=== PATIENT | female | born 1975 | race Caucasian/White ===

== ENCOUNTER 2019-06-26 13:45 | Emergency (ER) | payer OTHER ==
[2019-06-26] MEDS ORDERED: ACETAMINOPHEN 1000 MG/100 ML VIAL (NON FORMULARY) IVPB ONE (14:01)
[2019-06-26] MEDS ORDERED: ACETAMINOPHEN INJECTION 100 ML IVPB ONE (14:02)
[2019-06-26] MEDS ORDERED: ACETAMINOPHEN 325 MG TABLET (FP) PO ONE (14:20)
[2019-06-26] MEDS ORDERED: ACETAMINOPHEN 325 MG TABLET (FP) ONE (14:38)
[2019-06-26 14:46] VITALS: BMI 28.8
--- NOTE | 2019-06-26 15:04 | PDOC ---
History of Present Illness <Shama Harris Kimberlylex - Last Filed: 06/26/19 15:19> - History of Present Illness Initial Comments: Nolvia Khan is a 43yo woman with a PMH of endometriosis, PTSD, anxiety who presents with a head injury following a fall while ice skating. She reports that she was trying to avoid hitting a child, and she fell backwards and struck her head. Per EMS report, Ms Khan did lose consciousness for about 3 minutes. She was oriented x2 when she woke, now improved to fully oriented. She reports significant posterior head pain with slight nausea. She denies vomiting, focal weakness, difficulty speaking, or any current confusion. <Lorri Olmedo - Last Filed: 06/26/19 19:00> - General Chief Complaint: Injury Stated Complaint: FALL Time Seen by Provider: 06/26/19 14:05 Past History <HarrisRukhsanaShamaarnol Angeles - Last Filed: 06/26/19 15:19> <Lorri Olmedo - Last Filed: 06/26/19 19:00> - Past Medical History Allergies/Adverse Reactions: Allergies Allergy/AdvReac Type Severity Reaction Status Date / Time No Known Drug Allergies Allergy Verified 06/26/19 14:22 Home Medications: Ambulatory Orders Buspirone HCl [Buspar -] 5 mg PO DAILY 06/26/19 Review of Systems - Review of Systems Comments:: General: No fevers, no chills, no weight or appetite change, no malaise HEENT: No changes in vision, no changes in hearing, no congestion, no sore throat, +Rt ear pain, +MARTÍNEZ CV: No chest pain, no palpitations, no LE edema Pulm: No SOB, no cough, no wheezing GI: +nausea, no change in bowel habits, no melena : No frequency, no urgency, no dysuria Musc: See HPI Skin: No rash, no lesions, no erythema Endo: No excessive thirst, no heat/cold intolerance Heme: No unusual bruising or bleeding, no swollen glands Neuro: No syncope, no numbness/tingling, no focal weakness Vasc: No claudication Psych: No recent change in mood, no SI or HI <Lorri Olmedo - Last Filed: 06/26/19 19:00> *Physical Exam - Vital Signs Last Vital Signs Temp Pulse Resp BP Pulse Ox 97.1 F L 68 18 133/82 100 06/26/19 14:26 06/26/19 14:26 06/26/19 14:26 06/26/19 14:26 06/26/19 14:26 <Shama Harris - Last Filed: 06/26/19 15:19> - Physical Exam General: Comfortable, no acute distress HEENT: Contusion w/ swelling over posterior head. PERRL, EOMI, MMM, voice normal , normal neck ROM, no posterior neck tenderness Cards: RRR, no murmur appreciated Pulm: Comfortable on room air, clear to auscultation bilaterally Abd: Soft, nontender, nondistended Ext: Atraumatic. No LE edema. ROM intact. WWP Skin: Normal color, no rashes or lesions Neuro: A&Ox3, CN grossly intact, normal speech, motor/sensory grossly intact and symmetric. No focal deficits Psych: Mood appropriate to situation <Lorri Olmedo - Last Filed: 06/26/19 19:00> ED Treatment Course - Medications Given in the ED: ED Medications Discontinued Medications Generic Name Dose Route Start Last Admin Trade Name Freq PRN Reason Stop Dose Admin Acetaminophen 1,000 mg 06/26/19 14:01 06/26/19 14:35 Ofirmev Injection - IVPB 06/26/19 14:02 Not Given ONCE ONE Acetaminophen 975 mg 06/26/19 14:20 06/26/19 14:42 Tylenol - PO 06/26/19 14:21 975 mg ONCE ONE Administration <Shama Harris - Last Filed: 06/26/19 15:19> - RADIOLOGY Radiology Studies Ordered: Category Date Time Status HEAD CT WITHOUT CONTRAST [CT] Stat CT Scan 06/26/19 14:01 Ordered <Lorri Olmedo - Last Filed: 06/26/19 19:00> Medical Decision Making - Medical Decision Making 06/26/19 14:29 Nolvia Khan is a 43yo woman with a PMH of endometriosis, PTSD, anxiety who presents with a head injury following a fall while ice skating. She had positive LOC, was initially only oriented x2, and reports nausea but no vomiting. - Awake, alert, neurologically intact. - Swelling w/o abrasion or bleeding over large area of posterior head. TTP. - Given LOC, visible trauma, CT head ordered - No posterior neck tenderness, ROM intact. No need for CT c-spine 06/26/19 15:21 - CT head negative - Pt feeling improved after acetaminophen - Will d/c home. Advised regarding home care, return precautions, and follow up at length. Pt states understanding and agreement. Will f/u with her PMD Discussed with Dr Kimberly Olmedo PGY2 <Lorri Olmedo - Last Filed: 06/26/19 19:00> Discharge - Discharge Information Problems reviewed: Yes <Shama Harris - Last Filed: 06/26/19 15:19> - Discharge Information Problems reviewed: Yes - Admission No <Lorri Olmedo - Last Filed: 06/26/19 19:00> - Discharge Information Clinical Impression/Diagnosis: Scalp hematoma Qualifiers: Encounter type: initial encounter Qualified Code(s): S00.03XA - Contusion of scalp, initial encounter Closed head injury Qualifiers: Encounter type: initial encounter Qualified Code(s): S09.90XA - Unspecified injury of head, initial encounter Condition: Stable Disposition: HOME - Follow up/Referral Referrals: Anne Chua [Primary Care Provider] - - Patient Discharge Instructions Patient Printed Discharge Instructions: DI for Closed Head Injury Additional Instructions: Discharge Instructions: You were seen in the emergency department after a head injury. Your CT scan did not show any serious injury, but you will have swelling and bruising to the back of your head. Home Care and Follow Up: - You may use over the counter medications as needed for pain at home. 650- 1000mg acetaminophen (Tylenol) or 600mg ibuprofen (Motrin or Advil) can be used every 6-8 hours. If needed for continued pain, these medications may be alternated every 3-4 hours. For example, if you take ibuprofen at 9am, you may take acetaminophen at noon, ibuprofen at 3pm, etc. - It is strongly recommended that you take ibuprofen with food to help prevent stomach irritation. - Try using an ice pack for 20 minutes every hour to help control swelling and pain. - You will probably have tenderness and swelling for several days. If you have any other symptoms, see your primary doctor or return to the ED. - Seek immediate medical care if you have significant worsening of your symptoms , you become sleepy or confused, you have any neurological symptoms (eg. one- sided weakness, numbness, difficulty walking, changes in speech, facial droop), if you have multiple episodes of vomiting per hour for at least 2 hours, or if you have any other medical emergency. - Post Discharge Activity
--- NOTE | 2019-06-26 15:17 | PDOC ---
Attending Attestation - Resident Resident Name: Lorri Olmedo - ED Attending Attestation I have performed the following: I have examined & evaluated the patient, The case was reviewed & discussed with the resident, I agree w/resident's findings & plan - HPI HPI: 06/26/19 15:12 43 YOF PMH of endometriosis, PTSD, anxiety presenting with head injury after ice skating and fell backwards. she hit head, +LOC and disoriented at the scene where she was AAo x 2 only, only lasted several minutes.. c/o dizziness and occipital headache. ambulatory after event she also noted some bleeding from right ear, after cleaning and picking earlier today, but no changes with vision or hearing. 06/26/19 15:20 06/26/19 15:20 - Physicial Exam PE: 06/26/19 15:14 General: GCS 15 NAD, well appearing HEENT: NCAT, PERRL, EOMI. Airway intact. No battles sign or raccoon eyes. No e/ o ocular. Dentition intact. No e/o septal hematoma, nasal bridge stable. occipital scalp hematoma, no wounds. no hemotympanum. some blood in right external auditory canal Neck: neck supple, no midline C spine tenderness or deformity, ROM intact. No anterior mass or crepitus, trachea midline. Resp: Lungs clear bilaterally Chest: no clavicle or chest wall tenderness or crepitus CVS: RRR, 2+ pulses throughout. Abdomen: Abdomen soft, nontender, nondistended. Back: Back nontender, no midline spinal tenderness along cervical/thoracic/ lumbar spine, FROM, no stepoffs. MSK: Pelvis stable, Extremities symmetric, no focal areas of tenderness or deformities, proximal and distally; no pain on axial loading. FROM in all extrem. Neuro: Alert, oriented appropriately. CN II-XII grossly symmetric and intact. no focal neuro deficits. Sensation and strength intact throughout. Gait normal/ stable. Skin: intact, normal color and well perfused. - Medical Decision Making 06/26/19 15:13 Vital Signs Temp Pulse Resp BP Pulse Ox 97.1 F L 68 18 133/82 100 06/26/19 14:26 06/26/19 14:26 06/26/19 14:26 06/26/19 14:26 06/26/19 14:26 VS reviewed wnl. Trauma ddx: ICH, SDH/ EDH, C spine injury/strain, scalp hematoma The patient was ruled out for clinically significant C-spine injury via NEXUS criteria. Because the patient is A&Ox3, has no focal neurologic deficits, no posterior midline c-spine tenderness to palpation, no evidence of intoxication and has no painful distracting injuries there is no need to obtain radiographic studies to evaluate the cervical spine. head CT done to eval for ICH/bleed/injury given confusion and LOC Head CT neg for bleed. no SDH/ICH scalp hematoma noted closed head injury precautions given, adequate rest tylenol for headache prn c/w observation in the next 24 hours, return precautions discussed. Pt to be discharged in stable condition. Patient made aware of clinical impression, treatment recommendations and disposition plan, return precautions discussed (including but not limited to new or persistent/worsening symptoms, pain, fevers, or signs of infection, chest pain, respiratory distress, inability to tolerate oral intake, dehydration, syncope, or neurologic changes) . Follow up with PMD as recommended, follow up information provided, take medications as instructed for duration of time. continue with supportive care, avoid triggers and precipitants. All questions answered to patient's satisfaction and expressed understanding and comfort with this. At the time of discharge, the patient is alert, clinically improved, tolerating po and verbalizes understanding of instructions, satisfied with the care received and felt comfortable with the plan. Patient does not suffer from an acute life- threatening medical condition at this time and is safe for outpatient follow- up. 06/26/19 15:20
[2019-06-26 15:40] VITALS: BP 116/72; PULSE 64; TEMP 98.1
== END 2019-06-26 15:40 | disposition home or self-care (01) ==
LOC: JER 13:45
PROC: 3E033NZ Introduction of Analgesics, Hypnotics, Sedatives into Peripheral Vein, Percutaneous Approach (ICD-10-PCS; principal; 2019-06-26)
DX: S06.891A Other specified intracranial injury with loss of consciousness of 30 minutes or less, initial encounter (principal); S00.03XA Contusion of scalp, initial encounter; V00.211A Fall from ice-skates, initial encounter; Y93.21 Activity, ice skating; Y92.330 Ice skating rink (indoor) (outdoor) as the place of occurrence of the external cause; Y99.8 Other external cause status; F41.9 Anxiety disorder, unspecified; F43.10 Post-traumatic stress disorder, unspecified; Z87.42 Personal history of other diseases of the female genital tract
CPT/HCPCS: 70450-TC; 96374; 99283-25